=== PATIENT | male | born 2000 | race Hispanic/Latino ===

== ENCOUNTER 2020-11-23 13:48 | Emergency (ER) | payer OTHER ==
[~2020-11-23] VITALS: Ht 172.7 cm; Wt 76.9 kg
[2020-11-23 14:39] LABS: BASO % 0.4 % (0.0-1.0); EOS # 0.2 10^3/uL (0.0-0.5); EOS % 3.3 % (0.0-3.0); HEMATOCRIT 48.2 % (42.0-52.0); HEMOGLOBIN 15.5 g/dl (13.5-17.5); LYMPH # 1.5 10^3/uL (1.5-5.0); LYMPH % 31.5 % (24.0-44.0); MEAN CORPUSCULAR HEMOGLOBIN 27.4 pg (27.0-33.0); MEAN CORPUSCULAR HGB CONC 32.2 g/dl (32.0-36.5); MEAN CORPUSCULAR VOLUME 85.2 fl (80.0-96.0); MONO # 0.5 10^3/uL (0.0-0.8); NEUTROPHILS # 2.5 10^3/uL (1.5-8.5); NEUTROPHILS % 54.6 % (36.0-66.0); PLATELET COUNT, AUTOMATED 235 10^3/uL (150-450); RED BLOOD COUNT 5.66 10^6/uL (4.30-6.10); WHITE BLOOD COUNT 4.6 10^3/uL (4.0-10.0)
[2020-11-23 15:06] LABS: BLOOD UREA NITROGEN 16 MG/DL (7-18); CALCIUM LEVEL 9.1 MG/DL (8.5-10.1); CARBON DIOXIDE LEVEL 30 MEQ/L (21-32); CHLORIDE LEVEL 106 MEQ/L (98-107); CK-MB VALUE MASS < 1.0 NG/ML (<3.6); CPK CREATINE PHOSPHOKINASE 201 U/L (39-308); CREATININE FOR GFR 0.96 MG/DL (0.70-1.30); GLOMERULAR FILTRATION RATE > 60.0 (>60); GLUCOSE, FASTING 94 MG/DL (70-100); POTASSIUM SERUM 4.2 MEQ/L (3.5-5.1); SODIUM LEVEL 141 MEQ/L (136-145); TROPONIN I < 0.02 NG/ML (< 0.10)
[2020-11-23] MEDS ORDERED: IBUP-1022 PO (15:14)
--- NOTE | 2020-11-23 15:22 | REP ---
INDICATION: CHEST PAIN. COMPARISON: None. TECHNIQUE: AP portable chest FINDINGS: Lung beckwith are well inflated without infiltrate, effusion, atelectasis or masses. No lateral pleural thickening or apical scarring. No visible pneumothorax.. The heart, mediastinal hilar contours are normal. No pneumomediastinum. Bony thorax shows no focal lesion. There is no free air under the diaphragm. IMPRESSION: 1. No acute cardiopulmonary change. There is no visible infiltrate effusion atelectasis pneumothorax or other acute finding. 2. No cardiomegaly, edema widening of mediastinum, aortic abnormality or bony finding. <Electronically signed by Gianni Russell > 11/23/20 [id number]
[2020-11-23 15:42] VITALS: BP 137/85
--- NOTE | 2020-11-23 19:43 | ECGEPIP ---
[facility] - ED Test Date: 2020-11-23 Pat Name: CLOVER CORONA Department: Room: - Gender: Male Civil Engineering Specialist: SYLVIE : 2000 Requested By: DENISHA PERDOMO Order Number: [id number] Reading MD: Grisel Galicia Measurements Intervals [place] Rate: 83 P: 67 WA: 154 QRS: 85 QRSD: 84 T: 42 QT: 352 QTc: 413 Interpretive Statements Normal sinus rhythm No prior Electronically Signed on 11-23-2020 19:43:12 EST by Grisel Galicia
== END 2020-11-23 15:50 | disposition home or self-care (01) ==
LOC: M ED 13:48
DX: M94.0 Chondrocostal junction syndrome [Tietze] (principal)

== ENCOUNTER 2021-08-05 22:15 | Emergency (ER) | payer OTHER ==
[~2021-08-05] VITALS: Ht 172.7 cm; Wt 77.7 kg
[~2021-08-05 22:15] MED LIST: IBUP-1022 PO
[2021-08-05 22:17] VITALS: BP 151/86
--- OUTSIDE RECORDS SUMMARY | 2021-08-05 22:57 | CCD ---
Author Author [facility] Organization [facility] Address Unknown Phone Unavailable Care Team Providers Care Die Technician Name Role Phone Noah Francisco MD Unavailable Unavailable Noah Francisco MD Unavailable Unavailable Noah Francisco MD Unavailable Unavailable Noah Francisco MD Unavailable Unavailable Noah Francisco MD Unavailable Unavailable Noah Francisco MD Unavailable Unavailable Noah Francisco MD Unavailable Unavailable Noah Francisco MD Unavailable Unavailable Noah Francisco MD Unavailable Unavailable Noah Francisco MD Unavailable Unavailable Noah Francisco MD Unavailable Unavailable Noah Francisco MD Unavailable Unavailable Noah Francisco MD Unavailable Unavailable Noah Francisco MD Unavailable Unavailable Noah Francisco MD Unavailable Unavailable Noah Francisco MD Unavailable Unavailable Noah Francisco MD Unavailable Unavailable Noah Francisco MD Unavailable Unavailable Noah Francisco MD Unavailable Unavailable Noah Francisco MD Unavailable Unavailable Noah Francisco MD Unavailable Unavailable Noah Francisco MD Unavailable Unavailable Noah Francisco MD Unavailable Unavailable Noah Francisco MD Unavailable Unavailable Noah Francisco MD Unavailable Unavailable Noah Francisco MD Unavailable Unavailable Noah Francisco MD Unavailable Unavailable Noah Francisco MD Unavailable Unavailable Noah Francisco MD Unavailable Unavailable Noah Francisco MD Unavailable Unavailable Noah Francisco MD Unavailable Unavailable Noah Francisco MD Unavailable Unavailable Noah Francisco MD Unavailable Unavailable Noah Francisco MD Unavailable Unavailable Noah Francisco MD Unavailable Unavailable VaneenenaamNoah MD Unavailable Unavailable VaneenenaamNoah MD Unavailable Unavailable VaneenenaamNoah MD Unavailable Unavailable VaneenenaamNoah MD Unavailable Unavailable VaneenrafamNoah MD Unavailable Unavailable VaneenenaamNoah MD Unavailable Unavailable VaneenenaamNoah MD Unavailable Unavailable VaneenenaamNoah MD Unavailable Unavailable VaneenenaamNoah MD Unavailable Unavailable VaneenenaamNoah MD Unavailable Unavailable VaneenenaamNoah MD Unavailable Unavailable Re-disclosure Warning The records that you are about to access may contain information from federally-assisted alcohol or drug abuse programs. If such information is present, then the following federally mandated warning applies: This information has been disclosed to you from records protected by federal confidentiality rules (42 CFR part 2). The federal rules prohibit you from making any further disclosure of this information unless further disclosure is expressly permitted by the written consent of the person to whom it pertains or as otherwise permitted by 42 CFR part 2. A general authorization for the release of medical or other information is NOT sufficient for this purpose. The Federal rules restrict any use of the information to criminally investigate or prosecute any alcohol or drug abuse patient.The records that you are about to access may contain highly sensitive health information, the redisclosure of which is protected by Article 27-F of the [facility] Public Health law. If you continue you may have access to information: Regarding HIV / AIDS; Provided by facilities licensed or operated by the [facility] Office of Mental Health; or Provided by the [facility] Office for People With Developmental Disabilities. If such information is present, then the following [facility] mandated warning applies: This information has been disclosed to you from confidential records which are protected by state law. State law prohibits you from making any further disclosure of this information without the specific written consent of the person to whom it pertains, or as otherwise permitted by law. Any unauthorized further disclosure in violation of state law may result in a fine or fpc sentence or both. A general authorization for the release of medical or other information is NOT sufficient authorization for further disc losure. Encounters Encounter Providers Location Date Indications Data Source(s ) Outpatient Attender: Noah Francisco MD Physical Therap y 04/12/2021 02:45:00 PM EDT [facility] ([facility]) Immunizations Vaccine Date Status Description Data Source(s) COVID-19 VACCINE Pfizer 02/20/2021 12:00:00 AM EDT completed [facility] Vaccine Series Complete: NOThis Data was Submitted to [facility] Via [employer]Flow. Medications Medication Brand Name Start Date Product Form Dose Route Admi nistrative Instructions Pharmacy Instructions Status Indications Reaction Description Data Source(s) 60 mcg (15 mcg x 4)/0.5 mL 07/08/2021 12:00:00 AM EDT [facility] 0 DIRECTED IN THE RIGHT ARM DIRECTED IN THE RIGHT ARM SOLD: 07/08/2021 [facility] Insurance Providers Payer name Policy type / Coverage type Policy ID Covered democrat ID Covered democrat's relationship to ridley Policy Rid[place] Plan Information [facility] ACTIVE DUTY [id number] Problems, Conditions, and Diagnoses No Information Surgeries/Procedures Procedure Description Date Indications Data Source(s) OFFICE OUTPATIENT NEW 45 MINUTES 04/12/2021 12:00:00 A M [facility] Results ID Date Data Source [id number] 11/21/2020 09:19:00 AM EST [facility] Name Value Range Interpretation Code Description Data Janny rce(s) Supporting Document(s) SARS coronavirus 2 RNA Not Detected [facility] This lab was ordered [facility] and reported by [facility]. ID Date Data Source [id number] 08/29/2020 09:04:00 AM EST [facility] Name Value Range Interpretation Code Description Data Janny rce(s) Supporting Document(s) SARS coronavirus 2 RNA [facility] This lab was ordered [facility] and reported by [facility]. Procedure Social History No Information Vital Signs ID Date Data Source UNK Name Value Range Interpretation Code Description Data Source(s) Body weight 168.00 [lb_av] 168.00 [lb_av] [facility] ([facility] Body temperature 97.5 [degF] 97.5 [degF] [facility] ([facility] Body height 67 [in_i] 67 [in_i] [facility] ([facility] ) 5'7" Body mass index (BMI) [Ratio] 26.3 kg/m2 26.3 k g/m2 [facility] ([facility] )
--- OUTSIDE RECORDS SUMMARY | 2021-08-06 00:39 | CCD ---
Author Author [facility] Organization [facility] Address Unknown Phone Unavailable Care Team Providers Care Silver Miner Blasting Name Role Phone Noah Francisco MD Unavailable [...] is protected by Article 27-F of the [facility] Public Health law. If you continue you may have access to information: Regarding HIV / AIDS; Provided by facilities licensed or operated by the [facility] Office of Mental Health; or Provided by the [facility] Office for People With Developmental Disabilities. If such information is present, then the following [facility] mandated warning applies: This information has [...] law may result in a fine or penitentiary sentence or both. A general authorization for the release of medical or other information is NOT sufficient authorization for further disc losure. Encounters Encounter Providers Location Date Indications Data Source(s ) Outpatient Attender: Noah Francisco MD Physical Therap y 04/12/2021 02:45:00 PM EDT [facility] Immunizations Vaccine Date Status Description Data Source(s) COVID-19 VACCINE Pfizer 02/20/2021 12:00:00 AM EDT completed [facility] Vaccine Series Complete: NOThis Data was Submitted to [facility] Via [employer]. Medications Medication Brand Name Start Date Product [...] relationship to ridley Policy Ridley Plan Information [facility] ACTIVE DUTY [id number] Problems, Conditions, and Diagnoses No Information Surgeries/Procedures Procedure Description Date Indications Data Source(s) OFFICE OUTPATIENT NEW 45 MINUTES 04/12/2021 12:00:00 A M EDT [facility] Results ID Date Data Source [id number] 11/21/2020 09:19:00 AM EST [facility] Name Value Range Interpretation Code Description Data Janny rce(s) Supporting Document(s) SARS coronavirus 2 [facility] and reported by [facility]. ID Date Data Source [id number] 08/29/2020 09:04:00 AM EST [facility] Name Value Range Interpretation Code Description Data Janny rce(s) Supporting Document(s) SARS coronavirus 2 RNA [facility] This lab was ordered by [facility] [employer] [facility] and reported by [facility]. Procedure Social History No Information Vital Signs ID Date Data Source UNK Name Value Range Interpretation Code Description Data Source(s) Body temperature 97.5 [degF] 97.5 [degF] [facility] ([facility] Body height 67 [in_i] 67 [in_i] [facility] 5'7" Body weight 168.00 [lb_av] 168.00 [lb_av] [facility] ([facility] Body mass index (BMI) [Ratio] 26.3 kg/m2 26.3 k g/m2 [facility] ([facility]
[2021-08-06] MEDS ORDERED: BACLOFEN 10 MG TAB PO ONE (03:30)
[2021-08-06] MEDS ORDERED: NAPR-885 PO (03:30)
[2021-08-06] MEDS ORDERED: NAPROXEN 250 MG TAB PO ONE (03:30)
[2021-08-06] MEDS ORDERED: BACL1TAB8 PO (03:30)
== END 2021-08-06 03:43 | disposition home or self-care (01) ==
LOC: M ED 22:15
DX: M25.512 Pain in left shoulder (principal); M54.50 Low back pain, unspecified